=== PATIENT | female | born 1940 | race Caucasian/White ===

== ENCOUNTER 2017-06-24 14:39 | Emergency (ER) | payer MEDICARE ==
[~2017-06-24] VITALS: Ht 167.6 cm; Wt 59.4 kg
--- NOTE | 2017-06-24 14:47 | ER Report ---
History and Physical Time Seen By MD: 14:47 Hx. of Stated Complaint: PT HERE FOR CALCIUM. PT STATES THAT DR NYE TOLD HER TO COME. HPI/ROS CHIEF COMPLAINT: Hypocalcemia HISTORY OF PRESENT ILLNESS: 76-year-old female patient presents to emergency room with complaint of hypocalcemia. Patient states she had lab work done earlier today by her primary care provider who called her and recommended her to emergency room when she got the reports back. She states that she's been feeling weak, achy. She states that she felt this way last September, at that time she had missed a couple of doses of her calcium. She states that she's not missed any doses this time. She denies having any fevers, chills, nausea, vomiting or diarrhea. Patient states she does not ever get colds or flu. She states that she is not taking any medication for this. She states she was directed to come here to the emergency room for an infusion. REVIEW OF SYSTEMS: Respiratory: No cough, no dyspnea. Cardiovascular: No chest pain, no palpitations. Gastrointestinal: No vomiting, no abdominal pain. Musculoskeletal: No back pain. Allergies: Coded Allergies: bupropion (Verified Allergy, Intermediate, unknown, 06/24/17) MARIE Inhibitors (Unverified Allergy, Unknown, 06/24/17) cough citalopram (Unverified Allergy, Unknown, 06/24/17) Upset Stomach azithromycin (Unverified Adverse Reaction, Intermediate, GI DISTRESS, 06/24) nitrofurantoin (Verified Adverse Reaction, Intermediate, Severe vomiting, 06/24/17) oxycodone (Unverified Adverse Reaction, Intermediate, HALLUCINATIONS, 06/24) tramadol (Verified Adverse Reaction, Intermediate, Pruritus, 06/24/17) trimethoprim (Verified Adverse Reaction, Intermediate, Severe vomiting, ) Home Meds Active Scripts Levothyroxine Sodium (LEVOTHYROXINE SODIUM) 150 Mcg Tablet, 1 TAB PO QDAY, #45 TAB 0 Refills Prov:GABBY NYE MD 06/24/17 Losartan/Hydrochlorothiazide (LOSARTAN-HCTZ 100-12.5 MG TAB) 1 Each Tablet, 1 TAB PO QDAY, #90 TAB 3 Refills Prov:GABBY NYE MD 12/09/16 Albuterol Sulfate 90 Mcg/Act (PROAIR HFA 90 MCG/ACT) 8.5 Gm Hfa.aer.ad, 2 PUFF IH Q4-6H Y for DYSPNEA, #1 INHALER Prov:GABBY NYE MD 06/19/15 Reported Medications Fluticasone Prop 50 Mcg Ns (FLONASE 50 MCG NS) 16 Gm [place].susp, 1 SPRAY NS BID , BOT 10/28/16 Calcium Carbonate/Vitamin D3 (CALCIUM + VITAMIN D TABLET) 1 Each Tablet, 1 EACH PO DAILY Calcium 600 and Vitamin D3 800iu 06/23/16 Discontinued Scripts Levofloxacin 500 Mg Tab (LEVAQUIN 500 MG TAB) 500 Mg Tablet, 500 MG PO DAILY, # 5 TAB Prov:GABBY NYE MD 03/08/17 Tramadol Hcl (TRAMADOL HCL) 50 Mg Tablet, 1 TAB PO BID, #60 TAB 5 Refills Prov:GABBY NYE MD 03/08/17 Levothyroxine Sodium (LEVOTHYROXINE SODIUM) 175 Mcg Tablet, 1 TAB PO QDAY, #90 TAB 3 Refills Prov:GABBY NYE MD 08/24/16 Past Medical/Surgical History Patient has a past medical history of migraines, hypertension, hypocalcemia, ankle fracture, back pain, dry eyes, bruises easily, alcohol use, depression. Patient has a surgical history of tonsillectomy, parathyroid surgery, right ankle repair, hysterectomy. Reviewed Nurses Notes: Yes Hx Smoking: Yes (1/2PPD) Smoking Status: Current: Every Day Smoker Exposure to Second Hand Smoke?: Yes Hx Substance Use Disorder: No Hx Alcohol Use: Yes (1 PER DAY) Constitutional Vital Sign - Last 24 Hours 06/24/17 06/24/17 06/24/17 06/24/17 14:45 15:30 16:00 16:30 Temp 97.8 Pulse 77 84 77 75 Resp 20 20 18 14 B/P (MAP) 129/68 117/71 (86) 136/80 (98) Pulse Ox 92 92 93 94 O2 Delivery Room Air Intake and Output 06/24/17 06/24/17 06/25/17 15:00 23:00 07:00 Intake Total 100 ml Balance 100 ml Physical Exam General Appearance: The patient is alert, has no immediate need for airway protection and no current signs of toxicity. Respiratory: Chest is non tender, lungs are clear to auscultation. Cardiac: regular rate and rhythm Gastrointestinal: Abdomen is soft and non tender, no masses, bowel sounds normal. Musculoskeletal: Neck: Neck is supple and non tender. Extremities have full range of motion and are non tender. Skin: No rashes or lesions. DIFFERENTIAL DIAGNOSIS: After history and physical exam differential diagnosis was considered for hypocalcemia, hypomagnesemia Medical Decision Making Data Points Result Diagram: 06/24/17 1500 Laboratory Hematology Test 06/24/17 15:00 Sodium Level 140 mmol/L (137-145) Potassium Level 3.2 mmol/L (3.5-5.0) Chloride Level 101 mmol/L (98-107) Carbon Dioxide Level 27 mmol/L (22-31) Blood Urea Nitrogen 23 mg/dl (7-18) Creatinine 1.10 mg/dl (0.52-1.04) Glomerular Filtration Rate Calc 48.0 Random Glucose 96 mg/dl (75-110) Calcium Level 7.5 mg/dl (8.4-10.2) Magnesium Level 2.1 mg/dl (1.7-2.2) Total Bilirubin 0.8 mg/dl (0.2-1.3) Aspartate Amino Transf (AST/SGOT) 30 U/L (0-35) Alanine Aminotransferase (ALT/SGPT) 37 U/L (0-56) Alkaline Phosphatase 107 U/L (0-126) Total Protein 6.8 gm/dl (6.3-8.2) Albumin 3.7 g/dl (3.5-5.0) Chemistry Test 06/24/17 15:00 Glomerular Filtration Rate Calc 48.0 Calcium Level 7.5 mg/dl (8.4-10.2) Magnesium Level 2.1 mg/dl (1.7-2.2) Total Bilirubin 0.8 mg/dl (0.2-1.3) Aspartate Amino Transf (AST/SGOT) 30 U/L (0-35) Alanine Aminotransferase (ALT/SGPT) 37 U/L (0-56) Alkaline Phosphatase 107 U/L (0-126) Total Protein 6.8 gm/dl (6.3-8.2) Albumin 3.7 g/dl (3.5-5.0) EKG/Imaging EKG Interpretation 12 lead EKG: Done at 1207 Rhythm: Sinus rhythm with PACs, ventricular rate of 80 bpm [place]: normal QRS: normal ST segments: No specific ST abnormality ED Course/Re-evaluation ED Course Patient was admitted to examine, history and physical were obtained. Differential diagnoses were considered. On examination patient has regular heart rate, no tetany with muscle movements. An IV was started, a repeat CMP was done, her calcium at that time was 7.5. A magnesium was checked which was 2.1. I also checked an ionized calcium, however that was a send out and I do not have the results at this time. Patient received 1 g of calcium gluconate. On reevaluation patient states she's feeling significantly improved. She states that she was feeling fuzzy but is feeling much more clear at this time. She states she is ready to go home. I discussed with her that I would like her to double her calcium. Taking 1 tablet in the morning and 1 tablet in the evening. She is to follow-up with her primary care provider next week either Tuesday or . As I was talking with her about this she states that she has an appointment on Tuesday or Tuesday next week. We'll go ahead and discharge her home at this time. Decision to Disposition Date: Jun 24, 2017 Decision to Disposition Time: 16:46 Depart Departure Latest Vital Signs Vital Signs Date Time Temp Pulse Resp B/P (MAP) Pulse Ox O2 Delivery O2 Flow Rate FiO2 06/24/17 16:30 75 14 136/80 (98) 94 06/24/17 14:45 97.8 Room Air Impression: Primary Impression: Hypocalcemia Condition: Improved Disposition: HOME OR SELF-CARE Referrals: GABBY NYE MD (PCP) Patient Instructions: Hypocalcemia (ED) Additional Instructions: Continue with normal diet. Continue with normal medications. Increase your calcium to 1 tablet twice a day. Follow up with Dr. Nye next week, Tuesday or , call to make an appointment. Return to the ER if condition worsens. URSULA ULLOA Jun 24, 2017 14:47
[2017-06-24] MEDS ORDERED: CALCIUM GLUC 10% 100 MG/ML VL IVP ONE (15:10)
--- NOTE | 2017-06-24 15:23 | EKG ---
[place] [facility] [place] SHYAM VALDEZ : [id number] MR: [id number] V: [id number] EXAM DATE: ORDERING PHYSICIAN: GABBY NYE TECHNOLOGIST: PCT Test Reason : PALPITATIONS Blood Pressure : / mmHG Vent. Rate : 080 BPM Atrial Rate : 080 BPM P-R Int : 144 ms QRS Dur : 074 ms QT Int : 400 ms P-R-T Axes : 082 013 086 degrees QTc Int : 461 ms Sinus rhythm with premature atrial complexes Nonspecific ST and T wave abnormality Abnormal ECG No previous ECGs available Confirmed by FOREST CHICAS ([id number]) on 06/26/2017 8:55:58 AM Referred By: Confirmed By:FOREST CHICAS
[2017-06-24] MEDS ORDERED: NS(*) 0.9% 100 ML BAG 100 ML ONE (15:35)
[2017-06-24] MEDS ORDERED: NS(*) 0.9% 100 ML BAG 100 ML in NS(*) 0.9% 100 ML BAG 100 ML IVPB ONE (15:35)
[2017-06-24 16:30] VITALS: BP 136/80
== END 2017-06-24 16:50 | disposition home or self-care (01) ==
LOC: ER 14:42
DX: E83.51 Hypocalcemia (principal)
CPT/HCPCS: 83735; 96365; 99284; J0610; J7050; 82040; 82247; 82310; 82330; 82374; 82435; 82565; 82947; 84075; 84132; 84155; 84295; 84450; 84460; 84520

== ENCOUNTER → 2017-06-24 | Outpatient (CLI) | payer MEDICARE ==
[~2017-06-24] MED LIST: ADV100/50 INH; ALBU8.5H IH; ALE70 PO; ANTIBIOTIC; ASPI-1471 PO; AZIT-9 PO; BUPR-156 PO; CAL25 PO; CAL600 PO; CALC-1046; CALC-852 PO; CARB-222 OT; CEPH250T5 PO; CHOL200021 PO; CYC10 PO; DOCU100T19 PO; Docusate Sodium PO; FLU45SYR17 IM; FLUINH; FLUT10SP; FLUT16SP19 NS; FLUT16SP20 NS; HYDROCHLOROTHIAZIDE; IBUP200C71 PO; LEV100 PO; LEV112 PO; LEV125 PO; LEVO-130 PO; LEVO-85 PO; LEVO137T23 PO; LEVO150T78 PO; LEVO175T42 PO; LEVO75TA73 PO; LIS10 PO; LOR10/325 PO; LOR5 PO; LOR5/325 PO; LOSA-38 PO; LOSA-50 PO; LOSA-57 PO; MAGN250T34 PO; MAGN400T52 PO; NITR-105 PO; OMEG-23 PO; PER PO; PNEI IJ; PNEU0.5D3 IM; SULF-198 PO; TRAM-420 PO; TRI100 PO; TRI50 PO; VAR05PT PO; VARE1TAB3 PO; [UNRECOGNIZED DRUG - CODE] PO; [UNRECOGNIZED DRUG - REMARK]
[2017-06-24 12:56] LABS: PLATELET COUNT, AUTOMATED 258 K/uL (150-450)
== END ==
LOC: LAB 12:09
PROVIDERS: ATTEND Emergency Medicine
DX: R00.2 Palpitations (principal); E03.9 Hypothyroidism, unspecified; E20.9 Hypoparathyroidism, unspecified; E83.51 Hypocalcemia
CPT/HCPCS: 36415; 82040; 82247; 82306; 82310; 82374; 82435; 82565; 82947; 84075; 84100; 84132; 84155; 84295; 84443; 84450; 84460; 84484; 84520; 85025

== ENCOUNTER → 2017-08-03 | Outpatient (CLI) | payer MEDICARE ==
[~2017-08-03] MED LIST changes: +CODE118S5 PO; +POTA10CA40 PO
== END ==
LOC: LAB 14:29
PROVIDERS: ATTEND Emergency Medicine
DX: E03.9 Hypothyroidism, unspecified (principal)
CPT/HCPCS: 36415; 84443

== ENCOUNTER → 2017-08-22 | Outpatient (CLI) | payer MEDICARE | LOC: LAB 12:58 | PROVIDERS: ATTEND Emergency Medicine | DX: E03.9 Hypothyroidism, unspecified (principal); I10 Essential (primary) hypertension | CPT/HCPCS: 36415; 82465; 83718; 84478 ==

== ENCOUNTER 2017-11-07 12:09 | Outpatient (RCR) | payer MEDICARE ==
[~2017-11-07 12:09] MED LIST changes: -AZIT-18 PO; -ONDA2VIA22 IV; -ONDA4TAB PO
[2017-11-07] MEDS ORDERED: DEXTROSE 5%(*) 100 ML BAG 100 ML IVPB PRN (12:15)
[2017-11-07] MEDS ORDERED: LIDOCAINE/SOD BICARB 8.4% SYR ID PRN (12:15)
[2017-11-07] MEDS ORDERED: NS(*) 0.9% 100 ML BAG 100 ML IVPB PRN (12:15)
[2017-11-07] MEDS ORDERED: NS(*) 0.9% 1000 ML BAG 1,000 ML IV ONE (12:40)
[2017-11-07] MEDS ORDERED: ONDA2VIA22 IV (13:12)
[2017-11-07 13:13] VITALS: BP 121/60
[2017-11-07] MEDS ORDERED: ONDANSETRON 4 MG/2 ML VIAL IVP ONE (13:30)
[2017-11-07] MEDS ORDERED: ONDA4TAB PO (14:58)
[2017-11-07] MEDS ORDERED: AZIT-18 PO (15:20)
== END 2017-11-18 12:50 | disposition home or self-care (01) ==
LOC: SPU 12:09
PROVIDERS: ATTEND Nurse Practitioner Family
DX: R19.7 Diarrhea, unspecified (principal); R42 Dizziness and giddiness; R11.0 Nausea
CPT/HCPCS: 36415; 74022; 81001; 85025; 96361; 96374; J2405; J7030; 82040; 82247; 82310; 82374; 82435; 82565; 82947; 84075; 84132; 84155; 84295; 84450; 84460; 84520

== ENCOUNTER → 2017-11-07 | Outpatient (CLI) | payer MEDICARE ==
[~2017-11-07] MED LIST changes: +AZIT-18 PO; +ONDA2VIA22 IV; +ONDA4TAB PO
[2017-11-07 12:18] LABS: PLATELET COUNT, AUTOMATED 233 K/uL (150-450)
--- NOTE | 2017-11-07 13:18 | RADIOLOGY IMAGING REPORT ---
[place] [facility] [place] NAME: Kallie Marie : 1940 MR: [id number] V: [id number] EXAM DATE: ORDERING PHYSICIAN: URSULA ULLOA TECHNOLOGIST: Location: [facility] Patient: Kallie Marie : 1940 Visit/Account:[id number] Date of Sevice: 11/07/2017 Acute abdomen with chest: HISTORY: Nausea and vomiting. COMPARISON: Correlation made with chest x-ray 11/15/2016 FINDINGS: Upright and supine views of the abdomen: There is little gas is present within bowel loops. There are scattered air-fluid levels present. No free air is identified. Frontal view the chest: Cardiomediastinal silhouette is within normal limits. There is patchy opacit y in the left mid to lower lung new compared to prior studies, atelectasis versus infiltrate. There is no pleural effusion or pneumothorax. Pulmonary vasculature is normal. Atherosclerotic changes are present in the aorta. IMPRESSION: 1. Scattered air-fluid levels, very little gas is present in the abdomen and bowel could be fluid-fi lled. Findings could reflect either a gastroenteritis or possibly be due to early or partial bowel o bstruction. If clinically indicated, serial imaging may be considered. 2. Patchy opacity in the left lower lung, atelectasis versus infiltrate. Report Dictated By: Delilah Chaney MD at 11/07/2017 1:11 PM Report E-Signed By: Delilah Chaney MD at 11/07/2017 1:14 PM WSN:[email or web address]
== END ==
LOC: LAB 11:47
PROVIDERS: ATTEND Nurse Practitioner Family
DX: R91.8 Other nonspecific abnormal finding of lung field (principal)
CPT/HCPCS: 36415; 74022; 82040; 82247; 82310; 82374; 82435; 82565; 82947; 84075; 84132; 84155; 84295; 84450; 84460; 84520; 85025

== ENCOUNTER → 2017-12-26 | Outpatient (CLI) | payer MEDICARE ==
[~2017-12-26] MED LIST changes: +AZIT-18 PO; +IBUP-136 PO; -IBUP200C71 PO; +ONDA2VIA22 IV; +ONDA4TAB PO
[2017-12-26 13:42] LABS: PLATELET COUNT, AUTOMATED 233 K/uL (150-450)
== END ==
LOC: LAB 13:11
PROVIDERS: ATTEND Emergency Medicine
DX: I12.9 Hypertensive chronic kidney disease with stage 1 through stage 4 chronic kidney disease, or unspecified chronic kidney disease (principal); N18.9 Chronic kidney disease, unspecified; E03.9 Hypothyroidism, unspecified; M81.0 Age-related osteoporosis without current pathological fracture
CPT/HCPCS: 36415; 82040; 82247; 82310; 82374; 82435; 82465; 82565; 82947; 83718; 84075; 84132; 84155; 84295; 84443; 84450; 84460; 84478; 84520; 85025

== ENCOUNTER → 2018-01-05 | Outpatient (CLI) | payer MEDICARE ==
[~2018-01-05] MED LIST changes: +ROSU10TA5 PO
--- NOTE | 2018-01-05 18:07 | RADIOLOGY IMAGING REPORT ---
FACILITY: [facility] [place]IENT NAME: Kallie Marie : 1940 MR: [id number] V: [id number] EXAM DATE: ORDERING PHYSICIAN: GABBY NYE TECHNOLOGIST: Location: [facility] Patient: Kallie Marie : 1940 Visit/Account:[id number] Date of Sevice: 01/05/2018 Exam type: CHEST PA AND LAT History: Follow up pneumonia in a smoker Comparison: November 15, 2016. Findings: There is increased density seen in the anterior aspect of the lower thorax on the lateral view. This appears more prominent when compared the prior study however is not ideally localized on the PA view . There are nodular densities projecting over the lower lung mclain likely nipple shadows although t his could be confirmed with repeat chest with nipple markers. No evidence of pleural effusions or pu lmonary edema. The cardiac silhouette is normal in size. There is a dextroconvex scoliosis of the t horacic spine. Surgical clips project over the lower neck in the midline IMPRESSION: 1. There is an area of increased density anterior aspect lower thorax on the lateral view. This scott ears more prominent when compared the prior study and is not ideally localized on the PA view. Depdayne ding upon the degree of clinical concern short-term interval follow-up chest x-ray or chest CT may be of value.. If the chest radiograph is repeated as opposed to CT nipple markers should be employed t o confirm the nodular densities projecting over the lower lung mclain to in fact be related to nipple shadows Report Dictated By: Laine Berg MD at 01/05/2018 5:28 PM Report E-Signed By: Laine Berg MD at 01/05/2018 5:31 PM WSN:[email or web address]
== END ==
LOC: RAD 15:55
PROVIDERS: ATTEND Emergency Medicine
DX: R91.8 Other nonspecific abnormal finding of lung field (principal)
CPT/HCPCS: 71046

== ENCOUNTER → 2018-01-25 | Outpatient (CLI) | payer MEDICARE ==
--- NOTE | 2018-01-25 17:22 | RADIOLOGY IMAGING REPORT ---
FACILITY: [facility] PATIENT NAME: Kallie Marie : 1940 MR: [id number] V: [id number] EXAM DATE: ORDERING PHYSICIAN: GABBY NYE TECHNOLOGIST: Location: [facility] [place] Patient: Kallie Marie : 1940 Visit/Account:[id number] Date of Sevice: 01/25/2018 CHEST W/O CONTRAST COMPARISON: PA lateral chest x-ray January 05, 2018. HISTORY: abnormal chest xray, lung density on xray. Pneumonia 2 months ago with intermittent right-s ided chest pain. TECHNIQUE: Axial CT of the chest without intravenous contrast. Coronal and sagittal reformats. One of the following dose optimization techniques was utilized in the performance of this exam: auto mated exposure control; adjustment of the mA and/or kV according to patient size; or use of iterative reconstruction technique. Specific details can be referenced in the facility's radiology CT exam op erational policy. CT CHEST FINDINGS: CARDIAC: Mild left coronary artery calcifications. MEDIASTINUM/SIDDHARTHA: Unremarkable. No enlarged mediastinal nodes. No hilar adenopathy within the limi tations of a noncontrast study. VASCULATURE: Mild vascular calcifications. CHEST WALL: Thyroidectomy clips. No mass or axillary adenopathy. LUNGS/PLEURA: Volume loss and traction bronchiectasis in the lingula, consistent with mild fibrosis or scarring, considered benign. There is a 5 x 8 by 12 mm nodular opacity in the right middle lobe me dial segment which is probably benign, not imaged previously (series 4 image 230 and coronal image 23 . This has a triangular appearance on coronal reformats suggesting it is due to scarring. Mild biapic al scarring. There are a few 1 mm nodules elsewhere in both lungs which are probably benign. There ar e a few scattered 1 mm endobronchial filling defects which are probably mucous plugs. No pleural effu herman. BONES: Moderate thoracic spine degenerative changes. No bony lesion or acute appearing fracture. LIMITED ABDOMEN: Mild vascular calcifications. No significant findings. OTHER: Negative. IMPRESSION: 1. Benign-appearing scarlike nodular opacity in the right middle lobe measures up to 12 mm craniocau dally. A few scattered additional pulmonary nodules, likely benign but there are findings of prior th yroidectomy and it is unclear if the patient has history of thyroid cancer. Three-month follow-up rec ommended for all nodules. 2. Small region of fibrosis/traction bronchiectasis in the lingula. 3. Scattered 1 mm endobronchial filling defects which are probably mucous plugs. 4. Prior thyroidectomy. 5. Mild left coronary artery calcifications. Report Dictated By: Vicente Weaver at 01/25/2018 5:06 PM Report E-Signed By: Vicente Weaver at 01/25/2018 5:19 PM WSN:[id number]
== END ==
LOC: CT 00:58
PROVIDERS: ATTEND Emergency Medicine
DX: I25.10 Atherosclerotic heart disease of native coronary artery without angina pectoris (principal); R91.8 Other nonspecific abnormal finding of lung field
CPT/HCPCS: 71250

== ENCOUNTER → 2018-06-14 | Outpatient (CLI) | payer MEDICARE | LOC: LAB 14:47 | PROVIDERS: ATTEND Emergency Medicine | DX: Z01.818 Encounter for other preprocedural examination (principal) | CPT/HCPCS: 36415; 82565 ==

== ENCOUNTER → 2018-06-16 | Outpatient (CLI) | payer MEDICARE ==
--- NOTE | 2018-06-16 13:34 | RADIOLOGY IMAGING REPORT ---
FACILITY: [facility] - [place] PATIENT NAME: Kallie Marie : 1940 MR: [id number] V: [id number] EXAM DATE: ORDERING PHYSICIAN: GABBY NYE TECHNOLOGIST: Location: [facility] [place] Patient: Kallie Marie : 1940 Visit/Account:[id number] Date of Sevice: 06/16/2018 CT CHEST W/O CONTRAST History: Lung nodule TECHNIQUE: Contiguous axial images were performed through the chest to the level of the adrenal gla nds. No IV contrast was administered. Coronal and sagittal reformatting was also performed.Dose Lower ing Technique One of the following dose optimization techniques was utilized in the performance of this exam: Autom ated exposure control; adjustment of the mA and/or kV according to the patient's size; or use of an i terative reconstruction technique. Specific details can be referenced in the facility's radiology C T exam operational policy. COMPARISON STUDIES: January 25, 2018. Lungs / Pleura: When compared the prior study again noted is volume loss and traction bronchiectasi s in the lingula that appears relatively unchanged The previously noted 5 x 8 x 12 mm nodular opacity in the right middle lobe, medial segment is unchan ged and maintains its triangular appearance. A few 1 mm nodules previously noted have remained stable as well Mediastinum/nodes: negative. Heart and vessels: Mild to moderate coronary artery calcifications. There are moderate atherosclero tic calcifications in the thoracic aorta and branch vessels Musculoskeletal / Body wall: Surgical clips are seen in the thyroid bed from previous tyroid ectomy . Scoliosis of the thoracic spine and moderate spondylotic changes Upper abdomen: Visualized abdominal viscera negative. IMPRESSION: Scarlike area in the right middle lobe is unchanged in size measuring five x 8 x 12 mm [employer] FOLLOW-UP GUIDELINES FOR NEWLY DETECTED INCIDENTAL NODULES IN PERSONS 35 YEARS OF AGE OR OLDER. *These recommendations do NOT apply to lung cancer screening, patients with immunosuppression or sydnie ents with a known primary malignancy. MULTIPLE SOLID NODULES If nodule size is < 6 mm: * Low risk patient ? No routine follow-up. * High risk patient ? Optional CT at 12 months. If nodule size is 6-8 mm: * Low risk patient ? CT at 3-6 months, then consider CT at 18-24 months if no change. * High risk patient ? CT at 3-6 months, then CT at 18-24 months if no change. If nodule size is > 8 mm: * Low risk patient ? CT at 3-6 months, then consider CT at 18-24 months if no change. * High risk patient ? CT at 3-6 months, then consider CT at 18-24 months if no change. LOW RISK PATIENT: Minimal or absent history of tobacco use and of other known risk factors. HIGH RISK PATIENT: Tobacco use, family history of lung cancer, upper pulmonary lobe location of nodul e, presence of emphysema, pulmonary fibrosis, older age. Rylieholanny H, Sana DP, Nixono JM, et al. Guidelines for Management of Incidental Pulmonary Nodules Dete cted on CT Images: From the Fleischner Society 2017. Radiology. uchnipn Previously noted 1 mm nodules have remained stable Region of fibrosis/traction bronchiectasis in the lingula remain stable Prior thyroidectomy Left coronary artery calcifications Report Dictated By: Laine Berg MD at 06/16/2018 1:16 PM Report E-Signed By: Laine Berg MD at 06/16/2018 1:30 PM WSN:[email or web address]
== END ==
LOC: CT 06-15 00:42
PROVIDERS: ATTEND Emergency Medicine
DX: R91.8 Other nonspecific abnormal finding of lung field (principal); Z90.89 Acquired absence of other organs
CPT/HCPCS: 71250

== ENCOUNTER → 2018-08-23 | Outpatient (CLI) | payer MEDICARE ==
[~2018-08-23] MED LIST changes: +DULO30CA6 PO
[2018-08-23 12:18] LABS: PLATELET COUNT, AUTOMATED 233 K/uL (150-450)
== END ==
LOC: LAB 11:55
PROVIDERS: ATTEND Emergency Medicine
DX: R63.0 Anorexia (principal); E03.9 Hypothyroidism, unspecified; I10 Essential (primary) hypertension
CPT/HCPCS: 36415; 82040; 82247; 82310; 82374; 82435; 82565; 82607; 82947; 84075; 84132; 84155; 84295; 84443; 84450; 84460; 84520; 85025